=== PATIENT | female | born 1995 | race Caucasian/White ===

== ENCOUNTER 2018-03-08 11:51 | Emergency (ER) | payer OTHER ==
[~2018-03-08] VITALS: Ht 154.9 cm; Wt 71.7 kg
[~2018-03-08 11:51] MED LIST: CRYSELLE1 EACH PO; IBUPROFEN800 MG PO; NORCO 5-325 TA1 EACH PO; PENICILLIN V P500 MG PO; ZOFRAN ODT4 MG PO; ZOFRAN ODT8 MG PO
[2018-03-08] MEDS ORDERED: GLUCOPHAGE500 MG PO (12:53)
[2018-03-08] MEDS ORDERED: PANTOPRAZOLE SO40 MG PO (14:48)
[2018-03-08] MEDS ORDERED: ZOFRAN ODT4 MG PO (14:48)
[2018-03-08] MEDS ORDERED: VENTOLIN HFA18 GM INH (14:48)
[2018-04-24] MEDS ORDERED: PRENATAL COMPL1 EACH PO (18:39)
[2018-04-24] MEDS ORDERED: TUMS200 MG PO (18:39)
== END 2018-03-08 15:10 | disposition home or self-care (01) ==
LOC: ED 11:51
DX: R10.11 Right upper quadrant pain (principal); Z79.84 Long term (current) use of oral hypoglycemic drugs
CPT/HCPCS: 76705; 80053; 81001; 83690; 84703; 85025; 96361; 96374; 96375; 99284; J1885; J2405; J7030

== ENCOUNTER → 2018-04-24 | Emergency (ER) | payer OTHER ==
[~2018-04-24] VITALS: Ht 154.9 cm; Wt 71.7 kg
[~2018-04-24] MED LIST changes: +GLUCOPHAGE500 MG PO; +PANTOPRAZOLE SO40 MG PO; +PRENATAL COMPL1 EACH PO; +TUMS200 MG PO; +VENTOLIN HFA18 GM INH
== END ==
LOC: ED 17:57
DX: O99.89 Other specified diseases and conditions complicating pregnancy, childbirth and the puerperium (principal); R10.31 Right lower quadrant pain; Z3A.01 Less than 8 weeks gestation of pregnancy
CPT/HCPCS: 76705; 76801; 76802; 76817; 80053; 81001; 83690; 84702; 84703; 85025; 86900; 86901; 99284

== ENCOUNTER 2018-06-08 21:03 | Emergency (ER) | payer OTHER ==
[~2018-06-08] VITALS: Ht 154.9 cm; Wt 69.8 kg
== END 2018-06-08 23:18 | disposition home or self-care (01) ==
LOC: ED 21:03
DX: O99.611 Diseases of the digestive system complicating pregnancy, first trimester (principal); K21.9 Gastro-esophageal reflux disease without esophagitis; Z3A.12 12 weeks gestation of pregnancy
CPT/HCPCS: 80053; 81001; 84703; 85025; 96361; 96374; 96375; 99284; J2405; J7030; J7040

== ENCOUNTER 2018-12-02 09:00 | Inpatient (IN) | payer OTHER ==
[~2018-12-02] VITALS: Ht 154.9 cm; Wt 88.0 kg
--- NOTE | 2018-12-02 16:40 | PR ---
[facility] [address] [facility] [place], [place] [address] Signed Progress Notes IP Datetime Report Generated by CPN: 12/02/2018 16:40 PROGRESS NOTES: [id number] Impression: Normal progression of labor; Gest. HTN/PreEclampsia/Eclampsia Procedures: Artificial ROM Plan: Continue present management; Anticipate Vaginal Delivery VITAL SIGNS: [id number] Vital Signs: Reviewed; Within Normal Limits EXAM: [id number] Dilatation: 2.5 Effacement: 70 Station: -3 Uterine Contractions: every 1-2 minutes MEMBRANES: [id number] Membrane Status: Ruptured Amniotic Fluid Color: Clear ROM Note: AROM without difficulty, large amount clear fluid Comments: Doing well, without complaint, tolerating contractions well Fetus A: [id number] FHR Baseline: 120 Variability: Moderate 6-25bpm Accelerations: 15X15 Presentation: Vertex Fetus B: [id number] Signing Physician: Evan Farris MD Copies: ~ *Electronically Signed* 12/02/18 EVAN PARKS MD PATIENT NAME: ELIEZERRANDY PROGRESS NOTE DATE OF : [birth year] PHYSICIAN: EVAN FARRIS MD RPT #: [id number] REPORT IS CONFIDENTIAL AND NOT TO BE RELEASED WITHOUT AUTHORIZATION
--- NOTE | 2018-12-03 02:46 | PR ---
[facility] [address] [facility] [place], [place] [address] Signed Progress Notes IP Datetime Report Generated by CPN: 12/03/2018 02:45 PROGRESS NOTES: [id number] Impression: Normal progression of labor Procedures: Artificial ROM Plan: Continue present management VITAL SIGNS: [id number] Vital Signs: Reviewed; Within Normal Limits EXAM: [id number] Dilatation: 10.0 Effacement: 100 Station: -1 Uterine Contractions: every 1-2 minutes MEMBRANES: [id number] Membrane Status: Ruptured Amniotic Fluid Color: Clear ROM Note: AROM without difficulty, large amount clear fluid Comments: Pushing about 30-40 minutes, had bradycardia episode for about 3 minutes, down to 60-70, resolved with position change and O2, started pushing again after FHR back up for several minutes. Will continue pushing. Fetus A: [id number] FHR Baseline: 120 Variability: Moderate 6-25bpm Accelerations: 15X15 Decelerations: Prolonged Presentation: Vertex Fetus B: [id number] Signing Physician: Jamie Farris MD Copies: ~ *Electronically Signed* 12/03/18 0245 JAMIE FARRIS MD PATIENT NAME: RANDY MARTINS PROGRESS NOTE DATE OF : [birth year] PHYSICIAN: JAMIE FARRIS MD RPT #: [id number] REPORT IS CONFIDENTIAL AND NOT TO BE RELEASED WITHOUT AUTHORIZATION
--- NOTE | 2018-12-03 02:53 | PR ---
[facility] [address] [facility] [place], [place] [address] Signed Progress Notes IP Datetime Report Generated by CPN: 12/03/2018 02:53 PROGRESS NOTES: [id number] Impression: Normal progression of labor Procedures: Artificial ROM Plan: Continue present management VITAL SIGNS: [id number] Vital Signs: Reviewed; Within Normal Limits EXAM: [id number] Dilatation: 10.0 Effacement: 100 Station: -1 Uterine Contractions: every 1-2 minutes MEMBRANES: [id number] Membrane Status: Ruptured Amniotic Fluid Color: Clear ROM Note: AROM without difficulty, large amount clear fluid Comments: Second episode bradycardia, about 3-4 minutes down to 80-90 bpm, resolved with hands-knees position, now pushing in hands-knees Fetus A: [id number] FHR Baseline: 120 Variability: Moderate 6-25bpm Accelerations: 15X15 Decelerations: Prolonged Presentation: Vertex Fetus B: [id number] Signing Physician: Evan Farris MD Copies: ~ *Electronically Signed* 12/03/18 0253 EVAN FARRIS MD PATIENT NAME: ELIEZERAILYN PROGRESS NOTE DATE OF : [birth year] PHYSICIAN: EVAN FARRIS MD RPT #: [id number] REPORT IS CONFIDENTIAL AND NOT TO BE RELEASED WITHOUT AUTHORIZATION
--- NOTE | 2018-12-03 02:54 | PR ---
[facility] [address] [facility] [place], [place] [address] Signed Progress Notes IP Datetime Report Generated by CPN: 12/03/2018 02:54 PROGRESS NOTES: [id number] Impression: Normal progression of labor Procedures: Artificial ROM Plan: Continue present management VITAL SIGNS: [id number] Vital Signs: Reviewed; Within Normal Limits EXAM: [id number] Dilatation: 10.0 Effacement: 100 Station: -1 Uterine Contractions: every 1-2 minutes MEMBRANES: [id number] Membrane Status: Ruptured Amniotic Fluid Color: Clear ROM Note: AROM without difficulty, large amount clear fluid Comments: Second episode bradycardia, about 3-4 minutes down to 80-90 bpm, resolved with hands-knees position, now pushing in hands-knees Fetus A: [id number] FHR Baseline: 120 Variability: Moderate 6-25bpm Accelerations: 15X15 Decelerations: Prolonged Presentation: Vertex Fetus B: [id number] Signing Physician: Evan Farris MD Copies: ~ *Electronically Signed* 12/03/18 0254 EVAN FARRIS MD PATIENT NAME: ELIEZERAILYN PROGRESS NOTE DATE OF : [birth year] PHYSICIAN: EVAN FARRIS MD RPT #: [id number] REPORT IS CONFIDENTIAL AND NOT TO BE RELEASED WITHOUT AUTHORIZATION
--- NOTE | 2018-12-03 10:36 | PR ---
[facility] [address] [facility] [place] [address] Signed PP Progress Notes Datetime Report Generated by CPN: 12/03/2018 10:36 SUBJECTIVE: [id number] Pain: Within normal limits Nausea/Vomiting: Denies Vital Signs: [id number] Vital Signs: Reviewed; Within Normal Limits EXAM: [id number] Abdomen/Uterus: Normal Lochia: Abnormal Extremities: Normal IMPRESSION/PLAN/PROCEDURES: [id number] Impression: Normal progression Plan: Continue present management Procedures: None Progress Notes: Doing well, without complaitn, except increaed vaginal bleeding overnight, EBL 1200 since delivery, but seems to be slowing past 2 hours. Will continue monitoring, check Hemogram @ 1200. Signing Physician: Jamie Farris MD Copies: ~ *Electronically Signed* 12/03/18 1036 JAMIE FARRIS MD PATIENT NAME: RANDY MARTINS PROGRESS NOTE DATE OF : 95 PHYSICIAN: JAMIE FARRIS MD RPT #: [id number] REPORT IS CONFIDENTIAL AND NOT TO BE RELEASED WITHOUT AUTHORIZATION
--- NOTE | 2018-12-04 12:42 | PR ---
[facility] [address] [facility] [place] [address] Signed PP Progress Notes Datetime Report Generated by CPN: 12/04/2018 12:42 SUBJECTIVE: [id number] Pain: Within normal limits Nausea/Vomiting: Denies Vital Signs: [id number] Vital Signs: Reviewed; Within Normal Limits Notable Details: PP Hgb/Hct = 7.5/24.3 EXAM: [id number] Abdomen/Uterus: Normal Lochia: Normal Extremities: Normal IMPRESSION/PLAN/PROCEDURES: [id number] Impression: Normal progression Other Impression: PP Anemia Plan: Continue present management Procedures: None Progress Notes: Bleeding now minimal, doing well Signing Physician: Jamie Farris MD Copies: ~ *Electronically Signed* 12/04/18 1242 JAMIE FARRIS MD PATIENT NAME: RANDY MARTINS PROGRESS NOTE DATE OF : 95 PHYSICIAN: JAMIE FARRIS MD RPT #: [id number] REPORT IS CONFIDENTIAL AND NOT TO BE RELEASED WITHOUT AUTHORIZATION
--- NOTE | 2018-12-05 10:55 | PR ---
[facility] [address] [place] [address] Signed PP Progress Notes Datetime Report Generated by CPN: 12/05/2018 10:54 SUBJECTIVE: [id number] Pain: Within normal limits Nausea/Vomiting: Denies Vital Signs: [id number] Vital Signs: Reviewed; Within Normal Limits Notable Details: PP Hgb/Hct = 7.5/24.3 EXAM: [id number] Abdomen/Uterus: Normal Lochia: Normal Extremities: Normal IMPRESSION/PLAN/PROCEDURES: [id number] Impression: Normal progression Other Impression: PP Anemia Plan: Discharge Procedures: None Progress Notes: Without complaint, ready to go home. Discussed anemia and need for extra Fe. Signing Physician: Jamie Farris MD Copies: ~ *Electronically Signed* 12/05/18 1054 JAMIE FARRIS MD PATIENT NAME: RANDY MARTINS PROGRESS NOTE DATE OF : 95 PHYSICIAN: JAMIE FARRIS MD RPT #: [id number] REPORT IS CONFIDENTIAL AND NOT TO BE RELEASED WITHOUT AUTHORIZATION
== END 2018-12-05 13:00 | disposition home or self-care (01) | DRG 807 ==
LOC: FBC 09:00
PROVIDERS: ADMIT General Practice
PROC: 10907ZC Drainage of Amniotic Fluid, Therapeutic from Products of Conception, Via Natural or Artificial Opening (ICD-10-PCS; 2018-12-02)
PROC: 3E0P7VZ Introduction of Hormone into Female Reproductive, Via Natural or Artificial Opening (ICD-10-PCS; 2018-12-02)
PROC: 00HU33Z Insertion of Infusion Device into Spinal Canal, Percutaneous Approach (ICD-10-PCS; 2018-12-02)
PROC: 3E0R3BZ Introduction of Anesthetic Agent into Spinal Canal, Percutaneous Approach (ICD-10-PCS; 2018-12-02)
PROC: 10E0XZZ Delivery of Products of Conception, External Approach (ICD-10-PCS; principal; 2018-12-03)
PROC: 0UQGXZZ Repair Vagina, External Approach (ICD-10-PCS; 2018-12-03)
PROC: 0UQMXZZ Repair Vulva, External Approach (ICD-10-PCS; 2018-12-03)
DX: O14.94 Unspecified pre-eclampsia, complicating childbirth (principal); Z37.0 Single live birth; Z3A.38 38 weeks gestation of pregnancy; O69.1XX0 Labor and delivery complicated by cord around neck, with compression, not applicable or unspecified; O90.81 Anemia of the puerperium; D64.9 Anemia, unspecified; O36.63X0 Maternal care for excessive fetal growth, third trimester, not applicable or unspecified; O99.824 Streptococcus B carrier state complicating childbirth; O76 Abnormality in fetal heart rate and rhythm complicating labor and delivery; O70.0 First degree perineal laceration during delivery
CPT/HCPCS: 01960; 01996; 36415; 85027; J2540; J2550; J2590; J2795; J7060; J7120

== ENCOUNTER 2018-12-06 15:48 | Emergency (ER) | payer OTHER ==
[~2018-12-06] VITALS: Ht 154.9 cm; Wt 86.2 kg
== END 2018-12-06 17:10 | disposition home or self-care (01) ==
LOC: ED 15:48
DX: O72.1 Other immediate postpartum hemorrhage (principal); O90.81 Anemia of the puerperium; O16.5 Unspecified maternal hypertension, complicating the puerperium
CPT/HCPCS: 85025; 99284

== ENCOUNTER 2020-10-23 16:35 | Inpatient (IN) | payer OTHER ==
[~2020-10-23] VITALS: Ht 152.4 cm; Wt 91.2 kg
--- NOTE | 2020-10-23 18:36 | NUR ---
1809-SWABBED BOTH NARES FOR RAPID COVID TEST
--- NOTE | 2020-10-24 09:45 | PR ---
[facility] [address] [facility] [place], [place] [address] Signed PP Progress Notes Datetime Report Generated by CPN: 10/24/2020 09:45 SUBJECTIVE: [id number] Pain: Within Normal Limits Nausea/Vomiting: Denies Flatus: Yes Bowel Movement: No Vital Signs: [id number] Vital Signs: Reviewed; Within Normal Limits Cardiovascular: Normal Respiratory: Normal Abdomen/Uterus: Normal Lochia: Normal Vulva/Perineum: Not Done Breasts: Not Done CVA Tenderness: Normal Extremities: Normal Incision: Not Applicable Progress: Normal Exam Comments: Fundus firm U-2 nontender IMPRESSION/PLAN/PROCEDURES: [id number] Impression: Normal Progression Plan: Continue Present Management Progress Notes: Pt seen and examined. Doing well. Ambulating, voiding, and tolerating full diet. Pain and lochia minimal. well. No concerns. Anticipate d/c home tomorrow. Signing Physician: Breonna Plaza DO Copies: ~ *Electronically Signed* 10/24/20 0945 BREONNA PLAZA DO PATIENT NAME: ELIEZERRANDY PROGRESS NOTE DATE OF : 95 PHYSICIAN: BREONNA PLAZA DO [facility] #: [id number] REPORT IS CONFIDENTIAL AND NOT TO BE RELEASED WITHOUT AUTHORIZATION
--- NOTE | 2020-10-25 06:58 | PR ---
[facility] [address] [facility] [place], [place] [address] Signed PP Progress Notes Datetime Report Generated by CPN: 10/25/2020 06:58 SUBJECTIVE: [id number] Pain: Within Normal Limits Nausea/Vomiting: Denies Flatus: Yes Bowel Movement: No Vital Signs: [id number] Vital Signs: Reviewed; Within Normal Limits EXAM: Ongoing Cardiovascular: Normal Respiratory: Normal Abdomen/Uterus: Normal Lochia: Normal Vulva/Perineum: Not Done Breasts: Not Done CVA Tenderness: Normal Extremities: Normal Incision: Not Applicable Progress: Normal Exam Comments: Fundus firm U-2 nontender IMPRESSION/PLAN/PROCEDURES: [id number] Impression: Normal Progression Plan: Discharge Progress Notes: Pt seen and examined, doing well. Ambulating, voiding, and tolerating full diet. Pain and lochia minimal. well. No concerns. Desires d/c home. D/C instructions reviewed in detail. Signing Physician: Breonna Plaza DO Copies: ~ *Electronically Signed* 10/25/20 0658 BREONNA PLAZA DO PATIENT NAME: ELIEZERRANDY [place] PROGRESS NOTE DATE OF : 95 PHYSICIAN: BREONNA PLAZA DO RPT #: [id number] REPORT IS CONFIDENTIAL AND NOT TO BE RELEASED WITHOUT AUTHORIZATION
== END 2020-10-25 11:20 | disposition home or self-care (01) | DRG 807 ==
LOC: FBCO 16:35 → FBC 17:35
PROVIDERS: ADMIT Obstetrics & Gynecology; ATTEND Obstetrics & Gynecology
PROC: 10E0XZZ Delivery of Products of Conception, External Approach (ICD-10-PCS; principal; 2020-10-23)
PROC: 0HQ9XZZ Repair Perineum Skin, External Approach (ICD-10-PCS; 2020-10-23)
PROC: 10907ZC Drainage of Amniotic Fluid, Therapeutic from Products of Conception, Via Natural or Artificial Opening (ICD-10-PCS; 2020-10-23)
PROC: 10H07YZ Insertion of Other Device into Products of Conception, Via Natural or Artificial Opening (ICD-10-PCS; 2020-10-23)
PROC: 00HU33Z Insertion of Infusion Device into Spinal Canal, Percutaneous Approach (ICD-10-PCS; 2020-10-23)
PROC: 3E0R3BZ Introduction of Anesthetic Agent into Spinal Canal, Percutaneous Approach (ICD-10-PCS; 2020-10-23)
DX: O70.0 First degree perineal laceration during delivery (principal); Z37.0 Single live birth; Z3A.39 39 weeks gestation of pregnancy; O76 Abnormality in fetal heart rate and rhythm complicating labor and delivery
CPT/HCPCS: 01960; 36415; 81001; 84112; 85027; 87088; A9270; C9803; J2590; J2795; J7121; U0003

== ENCOUNTER 2021-05-26 16:50 | Inpatient (IN) | payer OTHER ==
[~2021-05-26] VITALS: Ht 152.4 cm; Wt 78.5 kg
[2021-05-26] MEDS ORDERED: OXYCODONE-ACET1 EAC3 PO (17:10)
--- NOTE | 2021-05-26 23:34 | NUR ---
PT ARRIVES TO CCU ROOM 127, ADMITTED WITH MULTILOBAR PNEUMONIA COVID POSITIVE. PT IS ALERT AND ORIENTED, PLANS TO STAY THE NIGHT WITH HER. CURRENTLY ON ROOM AIR WITH SPO2 96%. WALKED HERSELF INTO THE BR TO VOID THEN GOT INTO BED, BECAME QUITE SOB WITH THIS ACTIVITY, HAD TROUBLE GETTING OUT COMPLETE SENTENCES ALTHOUGH SPO2 REMAINED ABOVE 94%. ASSESSMENT DONE, LUNGS CLEAR/DIM. PLAN OF CARE DISCUSSED WITH PT AND AND QUESTIONS ANSWERED. PT REQUESTS SNACK, CRACKERS GIVEN. ALSO REQESTING PAIN MEDICINE FOR ABD PAIN PT IS 3 DAYS POST OP FROM AN ABDOMINAL TUMMY TUCK PROCEDURE WITH TWO MICHAEL DRAINS IN PLACE DRAINING SEROSANG FLUID.
--- NOTE | 2021-05-27 00:05 | NUR ---
PAIN MEDICATION GIVEN FOR 9/10 ABD PAIN, MOTRIN AND 5MG OXYCODONE. PT HAVING FREQUENT COUGHING WITH PRODUCTION OF SMALL AMOUNTS OF PINK SPUTUM.
--- NOTE | 2021-05-27 00:20 | NUR ---
CALL TO DR JETER TO UPDATE ON PTS DECREASED O2 SATS AND TINGLING FINGERS AND PRODUCTIVE COUGH, NEW ORDERS GIVEN.
--- NOTE | 2021-05-27 01:30 | NUR ---
PT GIVEN REMDESIVIR, DECADRON AND LOVENOX. PT RELUCTANT FOR LOVENOX AND TEARFUL, BELIEVING IT MAY CAUSE HER TO HAVE "INTERNAL BLEEDING". PT REASSURED AND EVENTUALLY AGREES TO TAKE IT. STATES PAIN LEVEL ACCEPTABLE AT THIS TIME.
--- NOTE | 2021-05-27 03:30 | NUR ---
PT HAS BEEN RESTING WITH O2 IN PLACE AND SATS ABOVE 95%.
--- NOTE | 2021-05-27 05:30 | NUR ---
IN TO DO BLOOD DRAW FOR BLOOD CULTURES AND AM LABS. PT TEARFUL AND VERY ANXIOUS WITH BLOOD DRAW.
--- NOTE | 2021-05-27 06:30 | NUR ---
JPS EMPTIED, SEROSANG FLUID 35ML AND 15ML.
--- NOTE | 2021-05-27 08:27 | NUR ---
2 CUPS OF WATER PROVIDED PERPATIENT REQUEST. S/O IN ROOM. SBA PATIENT TO BR. WILL USE CALL LIGHT IF NEEDED.
--- NOTE | 2021-05-27 08:45 | NUR ---
IN PATIENT'S ROOM FOR ASSESSMENT, VITALS, DRESSING CHANGE, AND BATH. PATIENT FIRST THING REPORTS TO THIS RN, "MY PAIN IS NOT UNDER CONTROL. I'M PRESCRIBED 10 MG OXYCODONE EVERY 4 HRS." DISCUSSION WITH PATIENT REGARDING HER PAIN CONTROL UNDERTAKEN AND WILL ATTEMPT TO CONTROL PATIENT'S PAIN BETTER. ENCOURAGED PATIENT TO EXPRESS HER NEEDS AND HER NEED FOR PAIN MEDICATION. PATIENT WAS UNDER THE IMPRESSION THAT HER PAIN MEDICATION WOULD BE GIVEN AROUND THE CLOCK EVERY 4 HRS AND SHE DIDN'T QUITE UNDERSTAND THAT SHE NEEDED TO ASK FOR IT. PATIENT GIVEN ADDITIONAL 5 MG OXYCODONE FOR PAIN THAT SHE STATES IS A 9/10. PATIENT'S ABDOMINAL BINDER FROM HER ABDOMINALPLASTY SURGERY REMOVED, AND ALL HER PREVIOUS ABD PADS REMOVED. MINIMAL DRAINAGE NOTED ON THESE ABD PADS, WHICH PATIENT WAS HAPPY TO SEE. NEW ABDOMINAL BINDER ADDED WITH NEW ABDS. BED BATH PROVIDED. PT HAS TWO MICHAEL DRAINS COMING OUT OF LOWER CORNERS OF INCISION. INCISION IS CLEAN, DRY, WITH SOME CRUSTING OLD BLOOD, BUT DOES NOT APPEAR INFECTED OR WARM TO TOUCH. BRUISING NOTED ON MONS PUBIS. PT GIVEN GOWN WELL. PATIENT NOW RESTING IN BED. SIGNIFICANT OTHER ASLEEP IN CHAIR. PT REPORTS THAT HE IS STARTING TO FEEL "HOT", AND THAT SHE ASSUMES HE IS ALSO LIKELY COVID POSITIVE. PT DENIES ANY SHORTNESS OF BREATH. ALSO OF NOTE, PATIENT'S NUMBNESS AND TINGLING IN HER HANDS AND FEET HAS COMPLETELY RESOLVED. PT REPORTS THAT HER HANDS WERE WHITE AND HER LIPS BLUE WHEN SHE CAME INTO THE ER. WILL CONTINUE TO MONITOR.
--- NOTE | 2021-05-27 10:01 | NUR ---
DR. JETER IN TO SEE PATIENT AT THIS TIME. PATIENT IS 98% ON ROOM AIR AT THIS TIME. HR IN THE 90s.
--- NOTE | 2021-05-27 10:27 | NUR ---
PATIENT STATES SHE IS DOING WELL, AND FEELING SO MUCH BETTER THAN YESTERDAY. LUNCH ORDERED FOR PATIENT. PATIENT ASKING ABOUT HER LOVENOX INJECTIONS AND IF SHE WILL NEED MORE OF THEM. DISCUSSED THIS WITH PATIENT AND HER SO AT BEDSIDE.
--- NOTE | 2021-05-27 12:30 | NUR ---
REPORT GIVEN TO BARBARA MENDIOLA ON MED SURG WHO IS RESUMING CARE OF PATIENT. PATIENT TAKEN OFF TELEMETRY AND TRANSFERRED TO ROOM 118. PATIENT TAKEN IN BED WITH ALL PERSONAL BELONGINGS. PATIENT'S NITZA WITH PATIENT WELL. PHONE CALL FROM TROUBLE SHOOTER ASKING IF PATIENT'S MOTHER CAN COME IN AND VISIT IF THE SWITCHES HER OUT. INFORMED PATIENT AND HER THAT CURRENT VISITOR POLICY IS THAT NO ONE WITH COVID IS ALLOWED TO HAVE VISITORS, BUT AN EXCEPTION WAS ALREADY MADE FOR HER TO STAY WITH HER. INFORMED PATIENT THAT THE NURSING WILDLIFE REFUGE SPECIALIST WOULD HAVE TO BE CONSULTED ABOUT THIS REQUEST I DID NOT KNOW THE RULING. PATIENT HAS REMAINED ON ROOM AIR SO FAR TODAY.
--- NOTE | 2021-05-27 14:03 | NUR ---
SINCE ARRIVAL ON MS PT HAS HAD NO NEEDS AND NO NEW CONCERNS WERE NOTED. WILL CONTINUE TO MONITOR.
--- NOTE | 2021-05-27 16:00 | NUR ---
V/S ARE WDL, PO INTAKE IS GOOD, RLL HAS SOME CRACKLES PRESENT AND IS A BIT DIMINISHED. ALL OTHER LOBES CLEAR, ABD SOUNDS PRESENT, ALLL INCISIONS ON ABD AND HER BACK ARE C/D/I, PT CALM AND COOPERATIVE. NO NEW CONCERNS NOTED SINCE ARRIVAL TO FLOOR.
--- NOTE | 2021-05-27 18:13 | NUR ---
SINCE ARRIVAL TO MS FLOOR, NO NEW CONCERNS WERE NOTED WITH THIS PT. RLL HAS SOME CRACKLES PRESENT AND IS A BIT DIMINISHED. ALL OTHER LOBES ARE CLEAR, PT DENIES SOB. ALL INCISIONS ARE C/D/I SO FAR. MICHAEL DRAINS OUTPUT IS DECREASING IT SEEMS. SEROUSSANG. DRAINAGE PRESENT WITH SOME MINIMAL CLOTS. PO INTAKE IS GOOD, V/S ARE WDL AND PT HAS REMAINED ON ROOM AIR SINCE ARRIVAL HERE. URINE OUTPUT IS ADEQUATE IT SEEMS. PT ALSO HAD A BM.
--- NOTE | 2021-05-27 19:00 | EKG ---
[facility] [address] [facility] [place], [place] [address] Signed Sinus tachycardia Otherwise normal ECG No previous ECGs available Confirmed by RAISSA JETER MD ([id number]) on 05/27/2021 7:00:41 PM Electronically Signed By: RAISSA JETER MD 05/27/21 1900 PATIENT NAME: RANDY MARTINS Electrocardiogram DATE OF : [birth year] PHYSICIAN: RAISSA JETER MD REPORT #: [id number] REPORT IS CONFIDENTIAL AND NOT TO BE RELEASED WITHOUT AUTHORIZATION
--- NOTE | 2021-05-27 19:30 | NUR ---
SHIFT REPORT RECEIVED FROM MAURY JIMENEZ. PT RESTING IN BED, PT STATES SHE FEELS SHE HAS EXTRA BLOOD IN HER TUMMY AREA AND THE MICHAEL DRAINS ARE PUTTING OUT LESS. PT ENCOURAGED TO GET OUT OF BED AND MOVE AROUND. PT REQUESTS A FRUIT BOWL, RESTAURANT DELIVERY DRIVER NOTIFIED. NO OTHER NEEDS AT THIS TIME. CALL LIGHT IN REACH.
--- NOTE | 2021-05-27 20:08 | NUR ---
pt spouse brought a garmet to the front desk receptionist for her. garmet delivered to this rn by security. garmet given to pt.
--- NOTE | 2021-05-27 20:46 | NUR ---
ASSESSMENT COMPLETED WITH PT MOTHER ON SPEAKER PHONE ASKING QUESTIONS, ANSWERED. GCS 15, A&O X4. INCISIONS WNL, PT WEARING A BELLY BAND WITH ABD PADS UNDER THE BAND, DRESSINGS CDI. MICHAEL DRAINS WNL, SS OUTPUT. PT ABD AND LELO MOUND AREA FIRM, BRUISING IN THE AREA AND ALL THE WAY AROUND THE LOWER ABD AND BACK NOTED. SLIGHT 3" DIAMETER AREA ON RIGHT LOWER ABD THAT FEELS MORE SOFT THAN OTHER AREAS, PT EDUCATION PROVIDED CONCERNING ACTIVITY, AMBULATION, MICHAEL DRAINS AND USE OF COLD PACKS. LUNGS CLEAR IN UPPER LOBES, FINE CRACKLES IN LOWER LOBES. HEART TONES REGULAR. CMS INTACT. SKIN WARM, DRY AND APPROPRIATE COLOR. PT STATES PAIN IS 6/10 AND THAT IS TOLERABLE TO HER. PT DENIES SOB. FRUIT AND CRACKERS PROVIDED. NO OTHER NEEDS AT THIS TIME.
--- NOTE | 2021-05-27 20:50 | NUR ---
IN TO GET VITALS, PT ON PHONE WITH MOM AT THIS TIME, PT ASKED ABOUT NEEDING O2 WITH SLEEP, RN IS AWARE, NO FURTHER NEEDS AT THIS TIME
--- NOTE | 2021-05-27 23:00 | NUR ---
SCHEDULED MEDS PROVIDED. PT EDUCATION AND THERAPUTIC COMMUNICATION PROVIDED. MICHAEL DRAINS EMPTIED OF A TOTAL OF 55ML SS OUTPUT. PT ASKS QUESTIONS, ANSWERED. IV WNL.
--- NOTE | 2021-05-27 23:30 | NUR ---
IV MED FINISHED, LINE FLUSHED, IV WNL. PT STATES ABD PAIN IS 9/10, PRN PAIN MED PROVIDED. PT STATES SHE HAS UPPER MID GASTRIC PAIN WHEN SHE TAKES A DEEP BREATH. PT DENIES SOB. LUNGS HAVE FINE CRACKLES IN LOWER LOBES, CLEAR IN UPPER LOBES. AREA NONTENDER TO PALPATION. SPO2 97%, RA. PT STATES SHE IS "JUST A HYPROCHONDRIAC" AND WORRIES ABOUT EVERYTHING. THERAPUTIC COMMUNICATION PROVIDED. PROCEDURES AND PLANS EXPLAINED IN DETAIL. PT STATES SHE IS "OK" NOW. NEW ICE PACK PROVIDED. NO OTHER NEEDS. CALL LIGHT IN REACH.
--- NOTE | 2021-05-28 | NUR ---
THIS RN RECEIVED A PHONE CALL FROM PT MOTHER, JABARI. SHE STATES THAT THE PT SENT A TEXT TO HER SISTER SAYING "[facility] IS GOING TO KILL ME." MOTHER ALSO BELIEVES DAUGHTER IS HAVING A REACTION TO THE DECADRON THE PT RECEIVED YESTERDAY AND IS "ACTING PARANOID AND NOT HERSELF". THIS RN TOLD JABARI SHE WOULD GO ASSESS PT. RN IN ROOM WITH PT WHO IS TEARFUL WHILE TEXTING ON HER PHONE. GCS 15, A&O X4. PT DENIES SOB, SPO2 97% RA. SKIN WAR, DRY, APPROPRIATE COLOR. ABD PAIN REMAINS UNCHANGED AT THIS TIME. PT STATES SHE IS "SO EMBARRASED BY MY MOTHER. I CAN'T BELIEVE SHE CALLED YOU!" PT REASSURED OF HER STABLE CONDITION AT THIS TIME. PT APOLOGIZES FOR "ACTING LIKE A CHILD." MORE THERAPUTIC COMMUNICATION PROVIDED. EDUCATION PROVIDED. RN DISCUSSED ANXIETY SIGNS, DEEP BREATHING AND HER MOTHER'S REQUEST, PER DAUGHTER, TO ASK "FOR SOMETHING FOR ANXIETY." THIS RN AND PT DISCUSSED MEDICATION OPTIONS, NON PHARMACOLOGICAL OPTIONS AND PT DECIDED SHE DID NOT WANT TO ANYTHING FOR ANXIETY. WHEN ASKED ABOUT FEELING THAT "[facility] WAS GOING TO KILL ME." SHE STATES SHE WAS JOKING WITH HER SISTER. PT IS CALM, NOT CRYING AND ORIENTED AT THIS TIME. ALL QUESTIONS AND CONCERNS OF PT ANSWERED. NO OTHER NEEDS AT THIS TIME. CALL LIGHT IN REACH.
--- NOTE | 2021-05-28 01:00 | NUR ---
PT RESTING IN BED, EYES CLOSED. PT OPEN EYES WHEN RN OPENS DOOR. PT STATES SHE HAS NO NEEDS AND HER PAIN IS TOLERABLE. CALL LIGHT IN REACH.
--- NOTE | 2021-05-28 02:41 | NUR ---
PT IN BED RESTING, EYES CLOSED. RR EVEN, UNLABORED. CALL LIGHT IN REACH.
--- NOTE | 2021-05-28 04:30 | NUR ---
PT RESTING IN BED, EYES CLOSED. RR EVEN, UNLABORED. CALL LIGHT IN REACH.
--- NOTE | 2021-05-28 06:24 | NUR ---
ASSESSMENT, VS AND I&O COMPLETED. ICE PACK PROVIDED, PT DECLINES MORE ICE WATER. PT ABD PAIN 9/10, PRN PAIN MEDS PROVIDED. GCS 15, A&O X4. SKIN WARM, DRY, APPROPRIATE COLOR. CMS INTACT. LUNGS CLEAR ON RIGHT SIDE, FINE CRACKLES IN LEFT LUNG. HEART TONES REGULAR. ABD FIRM, MILD DISTENTION, BOWEL TONES ACTIVE, SOFTER AREA IN RLQ. MICHAEL DRAINS WNL, SCANT SEROUS DRAINAGE AT RIGHT MICHAEL, OUTPUT IS SS. BRUISING UNCHANGED, INCISIONS WNL, CRUSTED. PT WEARING BELLYBAND, DECLINES ASSISTANCE WITH PUTTING ON COMPRESSION GARMET. IV WNL, REINFORCED WITH KERLIX. PT STATES SHE NO LONGER HAS UPPER MIDEPIGASTRIC PAIN WITH A DEEP BREATH, "MUST HAVE NEEN GAS". PT HAS SCANT SPUTUM THAT IS PINK TINGED AT TIMES. NEW GOWN PROVIDED. PT DECLINES OFFER OF TEA/COFFEE. NO OTHER NEEDS AT THIS TIME. ALL QUESTIONS ANSWERED, POC EDUCATION PROVIDED, PT REASSURED. NO OTHER NEEDS AT THIS TIME. CALL LIGHT IN REACH.
--- NOTE | 2021-05-28 07:30 | NUR ---
RECEIVED REPORT AROUND 0700. NO NEW CONCERNS WERE NOTED AT THAT TIME.
--- NOTE | 2021-05-28 08:30 | NUR ---
PT AAOX4, MID AND BOTH LOBER LOBES HAVE CRACKLES PRESENT. THIS IS A NEW FINDING THIS MORNING. UPPER LOBES CLEAR, PT DENIES SOB. ALL INCISIONS ARE C/D/I, MICHAEL-DRAINS AND THEIR INSERTION SITES ARE WDL, V/S ARE WDL, INTAKE IS WDL, OUTPUT SO FAR THIS SHIFT IS WDL, ABD IS TENDER TO TOUCH AND A BIT FIRM IN SOME PLACES, NO PERIPHERAL EDEMA NOTED. WILL CONTINUE TO MONITOR. PT SO FAR REMAINS ON RA.
--- NOTE | 2021-05-28 10:26 | NUR ---
PT TO WASH HER HAIR AND TO A BATH WITH WIPES. NEW ABD BINDER HAS BEEN PROVIDED. NO NEW CONCERNS NOTED AT THIS TIME.
[2021-05-28] MEDS ORDERED: CEPHALEXIN250 MG PO (10:43)
--- NOTE | 2021-05-28 10:45 | NUR ---
PATIENT IND IN ROOM. SHOWER SUPPLIES AND ORAL CARE SUPPLIES PROVIDED FOR PATIENT. LINENS CHANGED. PATIENT REQUESTED NEW ABDOMINAL BINDER AND NEW ABD PADS FOR STOMACH, RN NOTIFIED AND RN BROUGHT IN SUPPLIES. VITALS CHARTED BY RN EARLIER. I&O'S CHARTED. FRESH WATER GIVEN. CALL LIGHT IN REACH. NO FURTHER NEEDS AT THIS TIME.
--- NOTE | 2021-05-28 12:00 | NUR ---
MOTHER OF PT CALLED A LITTLE WHILE AGO AND WANTED AN UPDATE ON HER DAUGHTERS CONDITION. PT AGREED THAT I COULD UPDATE HER MOTHER ON HER PROGRESS. MOTHER HAS CONCERNS ABOUT THE DECADRON MAKING HER DAUGHTER "ACT OUT OF CHARACTER". MD JETER IS AWARE AND SO IS IT SECURITY SPECIALIST. I ALSO ASSISTED PT INTO HER "SUIT" THAT SHE WAS INSTRUCTED TO WEAR. PT IS DOING WELL.
--- NOTE | 2021-05-28 13:41 | NUR ---
PATIENT IN BED RESTING. VITALS AND I&O'S CHARTED. PATIENT ASKING FOR PAIN MEDS FOR 7 OUT OF 10 PAIN, RN NOTIIED. CALL LIGHT INR EACH. NO FURTHER NEEDS AT THIST KARIE.
--- NOTE | 2021-05-28 14:00 | NUR ---
UPPER LOBES ARE CLEAR, OTHER LOBES STILL SOUND LIKE CRACKLES ARE PRESENT. PT DENIES SOB. HOWEVER, PT STATED THAT SHE IS UNABLE TO TAKE DEEP BREATHS SINCE THIS MORNING WITHOUT SEVERE PAIN PRESENT IN HER LOWER STERNUM AREA. O2 SATS WDL AND NO OTHER CONCERNS WERE NOTED WITH SECOND ASSESSMENT. MD JETER TO BE CALLED.
--- NOTE | 2021-05-28 14:30 | NUR ---
MD JETER WAS CALLED ABOUT PT CHEST PAIN. EKG WAS ORDERED. WILL CONTINUE TO MONITOR.
--- NOTE | 2021-05-28 17:00 | NUR ---
PT IN ROOM SITTING ON COUCH. PT STATED THAT SHE NOW IS SEEING WHITE SPOTS. MD WAS NOTIFIED. NO NEW ORDERS WERE RECEIVED. PT DENIES DIZZINESS OR ANY OTHER ISSUES AT THIS TIME.
--- NOTE | 2021-05-28 18:33 | NUR ---
PT HAS BEEN ON RA AND AFEBRILE ALL SHIFT. V/S HAVE BEEN WDL ALL SHIFT. UPPER LOBES ARE CLEAR. LOWER LOBES DID HAVE CRACKLES PRESENT TODAY. PT HOWEVER HAS DENIED SOB. ALL INCISIONS ARE C/D/I. PT IS WEARING HER POST SURGERY "SUIT" ALSO. PAIN SEEMS TO BE WELL CONTROLLED WITH THE CURRENT PRN MEDS AVAILABLE. INTAKE AND OUTPUT ARE WDL. PT THIS AFTERNOON JUST BEFORE 1500 STATED THAT SHE WAS HAVING CHEST PAIN WHEN TAKING DEEP BREATHS. MD CALLED AND EKG WAS ORDERED. PT WAS AT NO TIME IN RESPIRATORY DISTRESS. V/S WERE WDL. THEN AROUND 1700 PT STATED THAT SHE WAS SEEING WHITE DOTS IN FRONT OF HER. MD WAS CALLED AND NO NEW ORDERS WERE RECEIVED.
--- NOTE | 2021-05-28 19:42 | NUR ---
SHIFT REPORT FROM NURSE EVANS. PT IN BED; DID NOT DISTURB AT THIS TIME. CALL LIGHT WITHIN REACH.
--- NOTE | 2021-05-28 21:29 | NUR ---
ASSESSMENT, VITALS, MEDS COMPLETED IN ROOM. PT WAS SITTING UP IN BED, ALERT AND AWAKE. REPORTS CONSISTENT COUGH AND WOULD LIKE PRN COUGH MEDICINE. PRN ROBITUSSIN PROVIDED ALONG WITH PRN OXYCODONE AND MOTRIN FOR 7/10 ABDOMINAL PAIN. PT IS VERY COOPERATIVE AND JOVIAL DURING TIME THIS NURSE IS IN ROOM. MICHAEL DRAINS EMPTIED; 8ML FROM #1, 10ML FROM #2. LUNG SOUNDS AT THIS TIME ARE CLEAR THROUGHOUT WITH THE EXCEPTION OF SOME VERY FINE CRACKLES MID RL. HR REG, BOWEL TONES ACTIVE, NO EDEMA NOTED, CMS INTACT. ABDOMINAL INCISION CDI; SCANT SEROUS DRAINAGE ON ABD PAD. REMDESIVIR INFUSING PER ORDERS. PT EDUCATED ON LOVENOX INJECTION AND NEED FOR ANTICOAGULATION D/T POST OP STATUS ALONG WITH COVID POSITIVE STATUS. PT REPORTS UNDERSTANDING. PT IS THANKFUL FOR INTERACTION/EDUCATION. DENIES FURTHER NEEDS AT THIS TIME. WILL RETURN WHEN REMDESIVIR IS FINISHED INFUSING. CALL LIGHT WITHIN REACH.
--- NOTE | 2021-05-28 22:30 | NUR ---
BACK IN ROOM TO PUT SCDS ON PT. PT WAS JUST GETTING READY TO TRY TO SLEEP. 400ML URINE IN URINE HAT EMPTIED. PT STATES THAT SHE WILL CALL FOR NEEDS SUCH PAIN MEDS, ETC DURING THE NIGHT. MADE AGREEMENT WITH PT THAT THIS RN CAN OPEN DOOR TO CHECK ON HER THROUGH THE NIGHT SINCE CURTAIN IS PULLED SHUT. PT DENIES FURTHER NEEDS AT THIS TIME. CALL LIGHT WITHIN REACH.
--- NOTE | 2021-05-29 00:41 | NUR ---
ROUNDS: PT WAS AWAKE AND READJUSTING HERSELF IN BED THIS NURSE OPENS DOOR. PT DENIES NEEDS AT THIS TIME. CALL LIGHT WITHIN REACH.
--- NOTE | 2021-05-29 02:43 | NUR ---
ROUNDS: PT AWAKES THIS NURSE SLIDES DOOR TO ROOM OPEN. PT DENIES NEEDS AT THIS TIME. CALL LIGHT WITHIN REACH.
--- NOTE | 2021-05-29 05:38 | NUR ---
CALL LIGHT ANSWERED, pt REQUESTING NURSE TO COME IN "HAVING A LITTLE PAIN". DESCRIBES PAIN "CHEST PAIN". WHEN RN IN ROOM, pt STATES "ITS PROBABLY MY LUNGS" POINTS TO MID EPIGASTRIC AREA. SITTING UP PLAYING ON CELL PHONE AT THIS TIME. "MAYBE ITS GAS, IT COULD BE GAS". PRIMARY RN [place] NOTIFIED AND WILL GO IN TO ASSESS PATIENT.
--- NOTE | 2021-05-29 06:00 | NUR ---
THIS NURSE ENTERED ROOM CHARGE NURSE WAS IN ROOM TAKING VITALS. PT REPORTS "PRESSURE/PAIN" IN CHEST THAT IS SIMILAR TO WHAT SHE HAS BEEN FEELING (SEE PREVIOUS NOTES). PT REPORTS THAT SHE FEELS THE "PAIN" IS IN HER LUNGS. INSPIRATION VS EXPIRATION DOES NOT CHANGE THE FEELING. CHARGE NURSE ADMINISTERED 5MG OXYCODONE PRN. IN DISCUSSION WITH PT, PT STARTING TO FEEL IF THE "PRESSURE/PAIN" MAY BE FROM BUILT UP INTESTINAL GAS SHE HAS NOT HAD A BOWEL MOVEMENT FOR OVER 24HRS. PRUNE JUICE BROUGHT TO PATIENT. AN NIO ORDER WILL BE PLACED FOR FURTHER STOOL SOFTENERS PT REPORTS BEING PRONE TO CONSTIPATION. THERAPEUTIC COMMUNICATION AND EDUCATION TIME SPENT WITH PT WHO REPORTS GRATITUDE FOR HER CARE. BEDDING CHANGED, PT UP IN ROOM WALKING TO IMPROVE BOWEL FUNCTION. LUNG SOUNDS DIM BUT CLEAR AT THIS TIME. PT REPORTS SOME CONSTANT PAIN IN LEFT LEG FROM MID CALF TO KNEE THAT HAS "BEEN THERE SINCE SURGERY". PEDAL PULSES INTACT, CMS INTACT, CAPILLARY REFILL WNL, LEFT FOOT BELOW KNEE PAIN IS WARM AND NORMAL COLOR. NO SIGNS OF DVT. WILL CONVEY THIS CONCERN/COMPLAINT FROM PT TO DAY SHIFT NURSE. PT TO LOOK OVER MENU AND ORDER BREAKFAST. THIS NURSE LEAVES ROOM, PT UP IN CHAIR. NO FURTHER CARE NEEDS AT THIS TIME.
--- NOTE | 2021-05-29 08:45 | NUR ---
Motrin 400mg po admin for reports of incisional pain.
--- NOTE | 2021-05-29 08:56 | NUR ---
Patient doing well this morning. Patient removed her compression garmet for me to see her incision/drains; all appear to be healing well, incisions are all closed with old dried blood noted to incisional borders. Drains x2; one left lower abdomen, one right lower abdomen-both are intact, closed to suction, scant sarosang drainage in tubes. Patient has breakfast at bedside. No needs.
--- NOTE | 2021-05-29 09:17 | NUR ---
PT INDEPENDENT IN ROOM. PT UP TO RESTROOM. WHITE BOARD UPDATED. CALL LIGHT WITHIN REACH. PT IS STARTING BREAKFAST NOW. NO FURTHER NEEDS AT THIS TIME.
--- NOTE | 2021-05-29 13:27 | NUR ---
ATTEMPTED TO CONTACT VIA PHONE, NO ANSWER. DISCUSSED NEED FOR DISCHARGE WITH CORINE JIMENEZ. PER CORINE JIMENEZ PATIENT DOES NOT HAVE ANY DISCHARGE NEEDS AT THIS TIME. PATIENT IS WAITING FOR A RIDE THEN WILL BE DISCHARGED.
--- NOTE | 2021-05-29 19:57 | EKG ---
[facility] [address] [place], [place] [address] Signed Normal sinus rhythm with sinus arrhythmia Normal ECG No previous ECGs available Confirmed by DANIELA OMALLEY DO ([id number]) on 05/29/2021 7:56:52 PM Electronically Signed By: DANIELA OMALLEY DO 05/29/211956 PATIENT NAME: RANDY MARTINS Electrocardiogram DATE OF : [birth year] PHYSICIAN: DANIELA OMALLEY DO REPORT #: [id number] REPORT IS CONFIDENTIAL AND NOT TO BE RELEASED WITHOUT AUTHORIZATION
== END 2021-05-29 14:15 | disposition home or self-care (01) | DRG 177 ==
LOC: ED 16:50 → CCU 21:37 → MS 21:37
PROVIDERS: ADMIT Internal Medicine; ATTEND Internal Medicine
PROC: 8E0ZXY6 Isolation (ICD-10-PCS; principal; 2021-05-26)
PROC: 3E0333Z Introduction of Anti-inflammatory into Peripheral Vein, Percutaneous Approach (ICD-10-PCS; 2021-05-26)
PROC: XW033E5 Introduction of Remdesivir Anti-infective into Peripheral Vein, Percutaneous Approach, New Technology Group 5 (ICD-10-PCS; 2021-05-26)
DX: U07.1 COVID-19 (principal); J12.82 Pneumonia due to coronavirus disease 2019; R04.2 Hemoptysis; E28.2 Polycystic ovarian syndrome; Z98.890 Other specified postprocedural states; Z79.899 Other long term (current) drug therapy
CPT/HCPCS: 71045; 71260; 80053; 81001; 83605; 83735; 85025; 85379; 87040; 93005; 93010; 96375; 99285-25; C9803; J0696; J1650; J1885; J2270; J2405; J2550; J7030; J7050; J8540; Q9967; U0003